=== PATIENT | female | born 2000 | race Caucasian/White ===

== ENCOUNTER 2022-11-08 12:22 | Emergency (ER) | payer BC, SELFPAY ==
[2022-11-08 12:24] VITALS: BP 147/85; PULSE 76; RESP 16; TEMP 37; O2SAT 100; BMI 31.6
--- NOTE | 2022-11-08 12:27 | PC.NURSE ---
WENT AND SEEN PT LET HER KNOW WE WERE ABOUT TO DISCHARGE A PT AND WOULD BRING HER BACK
--- NOTE | 2022-11-08 12:58 | HMH.EDGENADL ---
Discharge Plan Disposition Patient Disposition: Home, Self-Care Prescriptions Prescriptions: New amoxicillin-pot clavulanate 875-125 mg tablet 1 tab PO BID 10 Days Qty: 20 0RF Referrals Follow up/Referrals: Mohit Mullen [Primary Care Provider] - See instructions Activity Restrictions/Add. Instructions Additional Instructions/Restrictions: Return with any spreading redness with swelling warmth fevers etc. Clinical Impressions Clinical Impression: Dog bite Instructions Patient Instructions: Animal Bites Discharge ED Provider: [facility] HPI General Chief complaint: Animal Bite Stated complaint: Dog bite 11/08 RT elbow wound Time Seen by Provider: 11/08/22 12:58 Mode of Arrival: Ambulatory Source of Information: Patient Limitations: No Limitations Description of Symptoms (Recalled from ER Triage Doc. by RN): 22 yo F presents to ED for dog bite. pt states that she was bitten by her boyfriends dog last night. pt come in to have dog bites evaluated. no swelling, redness noted at site. History of Present Illness HPI narrative: Patient is a 22-year-old female presenting with a dog bite on her right arm. States that she was at her boyfriend's house and the dog at the boyfriend's house was very territorial and occasionally when people come around get aggressive but this is not out of the ordinary for the dog before or after the bite. The dog bit the patient over the right elbow which she irrigated it numerous times. She is not concerned about rabies she states that she has had full range of motion no redness swelling warmth or purulent drainage from the wound. No fevers or chills. Related Data Previous Rx's Medication Instructions Recorded amoxicillin 875 mg-potassium 1 tab PO BID 10 days #20 tabs 11/08/22 clavulanate 125 mg tablet Allergies Allergy/AdvReac Type Severity Reaction Status Date / Time No Known Allergies Allergy Verified 02/03/19 10:55 [facility] Disclaimer: The information contained in this section may have been updated after the patient was seen, as this information can be updated by other users. Social History Smoking Status: Never smoker alcohol intake: never substance use type: denies use current occupational status: student Travel in the last 8 weeks: Inside the [place] household members: family housing: house ROS Obtained: Yes All systems reviewed & no additional complaints except as documented Physical Exam General General appearance: alert Respiratory Respiratory exam: Absent respiratory distress Cardiovascular Cardiovascular exam: Present regular rate Extremities Exam Extremities exam: Present other (On the right lateral aspect of her right elbow there are 2 0.25 cm punctate wounds also a single 0.25 punctate wound on medial aspect there is full range of motion no erythema or warmth around this area which no foreign bodies palpated. She states that she is certain that there were no fragments of) Neurological Exam Neurological exam: Present alert Medical Decision Making Darrell Inquiry Pt receiving controlled substance: No Vital Signs: 11/08/22 12:24 Temperature 98.6 F Temperature Source Oral Pulse Rate [Left] 76 Respiratory Rate 16 Blood Pressure [Right Arm] 147/85 H Blood Pressure Mean [Right Arm] 105 02 Sat by Pulse Oximetry 100 Medical Decision Narrative: 22-year-old female with a dog bite we will treat with Augmentin. She is up-to-date on her tetanus. Regarding rabies this is a low risk bite the dog was acting in its normal behavior is a well-known dog has had normal behavior before and after this we will not prophylax with rabies immunizations or IVIG. Return precautions discussed. Critical Care Time Critical Care Time Critical Care Time: No Attestation: On 11/08/22, the high probability of a clinically significant, sudden or life threatening deterioration of the following system(s) required m
[2022-11-08 13:15] VITALS: BP 147/80; PULSE 77; RESP 18; TEMP 37; O2SAT 98
== END 2022-11-08 13:16 | disposition home or self-care (01) ==
PROVIDERS: Emergency Provider Student in an Organized Health Care Education/Training Program; PCP Internal Medicine
DX: S51.031A Puncture wound without foreign body of right elbow, initial encounter (principal); W54.0XXA Bitten by dog, initial encounter
CPT/HCPCS: 99283; 99284

== ENCOUNTER 2024-04-22 18:17 | Emergency (ER) | payer BC, SELFPAY ==
[2024-04-22 19:38] VITALS: BP 143/91; PULSE 87; RESP 19; TEMP 37.3; O2SAT 98; BMI 38.9
--- NOTE | 2024-04-22 19:39 | ED_ITS ---
Discharge Plan Disposition Patient Disposition: Home, Self-Care Condition: Good Prescriptions Prescriptions: New methylprednisolone 4 mg Tablets,Dose Pack 4 mg PO DIRECTED 6 Days Qty: 21 0RF Rx Instructions: Take 1 pack as directed for 6 days cyclobenzaprine 10 mg Tablet 10 mg PO BID PRN (Reason: Muscle Spasm) Qty: 20 0RF No Action escitalopram oxalate 20 mg tablet 20 mg PO DAILY Patient Comments: TAKE 1 TABLET BY MOUTH ONCE DAILY Referrals Follow up/Referrals: Yohana Puentes PA [Primary Care Provider] - See instructions Activity Restrictions/Add. Instructions Additional Instructions/Restrictions: Go home and rest. It would be best if you rested tomorrow too. No heavy lifting & No twisting for the next several days. Take the oral medications as directed. The muscle relaxer (cyclobenzaprine--Flexeril) will make you drowsy, so don't drive or operate heavy machinery after taking it. Follow up with your regular doctor. GO TO THE ER FOR ANY WORSENING SYMPTOMS OR CONCERN, ESPECIALLY BOWEL OR BLADDER ISSUES, SADDLE AREA NUMBNESS, FEVER, ETC Clinical Impressions Clinical Impression: Low back strain, Low back pain, Right lumbar radiculopathy Stand Alone Forms Stand Alone Forms: Work/School Release Instructions Patient Instructions: Low Back Pain, DI for Low Back Pain, Cyclobenzaprine, Me thylprednisolone Print Language Print Language: Setswana Discharge ED Provider[place] Melchor [place] [facility] [place] [facility] [place] General Stated complaint: back pain Time Seen by Provider: 04/22/24 19:39 History of Present Illness Provider Complaint: She states that she has had low back pain for the past 1 week. 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 Related Data Home Medications ?Medication ?Instructions ?Recorded ?Confirmed escitalopram oxalate 20 mg tablet 20 mg PO DAILY 04/22/24 04/22/24 Previous Rx's ?Medication ?Instructions ?Recorded cyclobenzaprine 10 mg tablet 10 mg PO BID PRN Muscle Spasm #20 04/22/24 tabs methylprednisolone 4 mg tablets in 4 mg PO DIRECTED 6 days #21 tabs 04/22/24 a dose pack Allergies Allergy/AdvReac Type Severity Reaction Status Date / Time No Known Allergies Allergy Verified 02/03/19 10:55 [facility] Disclaimer: The information contained in this section may have been updated after the patient was seen, as this information can be updated by other users. Social History Smoking Status: Never smoker alcohol intake: never substance use type: denies use current occupational status: student Travel in the last 8 weeks: Inside the [place] household members: family housing: house ROS Obtained: Yes All systems reviewed & no additional complaints except as documented Constitutional Constitutional: Denies chills and Denies fever(s) Eyes Eyes: Denies eye discharge ENT Ears, Nose, Mouth, and Throat: Denies dizziness, Denies otalgia, Denies neck pain and Denies sore throat Cardiovascular Cardiovascular: Denies chest pain Respiratory Respiratory: Denies shortness of breath, Denies chest congestion, Denies cough, Denies stridor and Denies wheezing Gastrointestinal Gastrointestingal: Denies nausea or vomiting Musculoskeletal Musculoskeletal: Reports back pain and Denies neck pain Integumentary/Breasts Skin/Breast: Denies rash Neurologic Neurologic: Denies dizziness and Denies paresthesias Allergic/Immunologic Allergic/Immunologic: Denies wheezing Physical Exam General General appearance: alert and in no apparent distress Head Head exam: atraumatic, normocephalic and normal inspection Eye Eye exam: Present normal appearance, PERRL and EOMI ENT ENT exam: Present normal exam, normal oropharynx, mucous membranes moist, TM's normal bilaterally and normal external ear exam Neck Neck exam: Present normal inspection, full ROM and trachea midline; Absent meningismus or lymphadenopathy Chest Chest inspection: Present normal inspection and symmetric chest wall rise; Absent tenderness Respiratory Respiratory exam: Present normal lung sounds bilaterally; Absent respiratory distress Cardiovascular Cardiovascular exam: Present regular rate and normal rhythm; Absent JVD Abdominal Exam Abdominal exam: Present soft and normal bowel sounds; Absent distention, tenderness or guarding Extremities Exam Extremities exam: Present normal inspection, full ROM and normal capillary refill; Absent calf tenderness Back Exam Back exam: Present normal inspection; Absent tenderness Neurological Exam Neurological exam: Present alert, oriented X3, CN II-XII intact, normal gait and reflexes normal; Absent motor sensory deficit Expanded Neurological Exam Speech: Present fluid speech Cranial nerves: Normal: EOM function (II, III, IV, ), facial sensation (V), facial palsy (VII), gag reflex (IX), spinal accessory function (XI) and tongue deviation (XII) Cerebellar function: normal gait Motor strength - LUE: 5/5 Motor strength - RUE: 5/5 Motor strength - LLE: 5/5 Motor strength - RLE: 5/5 Upper motor neuron exam: Normal: lakshmi neglect and sensory extinction Sensory exam upper extremity: Normal: light touch and 2 point discrimination Sensory exam lower extremity: Normal: light touch and 2 point discrimination DTR: 2+: biceps (L), biceps (R), patellar (L), patellar (R), Achilles tendon (L) and Achilles tendon (R) Spinal cord function: Absent saddle anesthesia Psychiatric Psychiatric exam: Present normal affect and normal mood Skin Skin exam: Present warm, dry, intact and normal color Lymphatic Lymphatic Findings: no adenopathy Medical Decision Making Medical Records Screening: Per USPSTF and CDC recommendations, given the prevalence of disease in our region, it is our hospital?s policy to screen for HIV and viral Hepatitis for all patients aged 18 and over and those with ongoing risk factors. Darrell Inquiry Pt receiving controlled substance: No
[2024-04-22 20:04] VITALS: BP 143/91; PULSE 87; RESP 19; TEMP 37.3
== END 2024-04-22 20:06 | disposition home or self-care (01) ==
PROVIDERS: Emergency Provider Nurse Practitioner Family; PCP Physician Assistant Medical
DX: M54.50 Low back pain, unspecified (principal)
CPT/HCPCS: 99213; G0381